=== PATIENT | male | born 1945 | race Caucasian/White ===

== ENCOUNTER 2025-02-20 08:43 | Outpatient (CLI) | payer MEDICARE | END 2025-02-20 08:44 | disposition home or self-care (01) | LOC: CSHSLEEP 08:43 | PROVIDERS: ATTEND Internal Medicine | DX: G47.33 Obstructive sleep apnea (adult) (pediatric) (principal); R06.83 Snoring; I25.10 Atherosclerotic heart disease of native coronary artery without angina pectoris; I11.9 Hypertensive heart disease without heart failure | CPT/HCPCS: 95810 ==

== ENCOUNTER 2025-04-30 08:57 | Outpatient (CLI) | payer MEDICARE | END 2025-04-30 08:58 | disposition home or self-care (01) | LOC: CSHSLEEP 08:57 | PROVIDERS: ATTEND Internal Medicine | DX: G47.33 Obstructive sleep apnea (adult) (pediatric) (principal); R06.83 Snoring; I25.10 Atherosclerotic heart disease of native coronary artery without angina pectoris; I11.9 Hypertensive heart disease without heart failure; I25.2 Old myocardial infarction | CPT/HCPCS: 95811 ==